=== PATIENT | male | born 1955 | race Caucasian/White ===

== ENCOUNTER 2016-07-23 06:09 | Day surgery (SDC) | payer BC ==
[~2016-07-23] VITALS: Ht 162.6 cm; Wt 68.0 kg
[~2016-07-23 06:09] MED LIST: CEFAZOLIN 2GM PREMIX 50 ML IV PRN; OMEP20TA63 PO
[2016-07-23] MEDS ORDERED: BUPIVACAINE-EPI 0.25%-1:200000 50 ML VIAL. ONE (06:22)
[2016-07-23] MEDS ORDERED: ACETAMINOPHEN INTRAVENOUS 100 ML IV ONE (06:45)
[2016-07-23] MEDS ORDERED: IV RINGERS,LACTATED 1000ML 1,000 ML IV SCH (07:00)
[2016-07-23] MEDS ORDERED: FENTANYL PF 100 MCG/2 ML VIAL. IV PRN ×2 (07:00)
[2016-07-23] MEDS ORDERED: MORPHINE SULFATE 2 MG/ML DISP.SYRIN. IV PRN (07:00)
[2016-07-23] MEDS ORDERED: LIDOCAINE 1% 1 ML SYRINGE. ID PRN (07:00)
[2016-07-23] MEDS ORDERED: ONDANSETRON PF 4 MG/2 ML VIAL. IV PRN (07:00)
[2016-07-23] MEDS ORDERED: HYDROMORPHONE 2 MG/ML VIAL. IV PRN (07:00)
[2016-07-23] MEDS ORDERED: PROCHLORPERAZINE 10 MG/2 ML VIAL. IV PRN (07:00)
[2016-07-23] MEDS ORDERED: DEXAMETHASONE SOD PHOS 20 MG/5 ML VIAL. ONE (07:51)
[2016-07-23] MEDS ORDERED: PROPOFOL 20 ML IV ONE ×2 (07:51→10:00)
[2016-07-23] MEDS ORDERED: ONDANSETRON PF 4 MG/2 ML VIAL. ONE (07:51)
[2016-07-23] MEDS ORDERED: LIDOCAINE 2% 100 MG/5 ML DISP.SYRIN. ONE (07:51)
[2016-07-23] MEDS ORDERED: ROCURONIUM 50 MG/5 ML VIAL. ONE (07:52)
[2016-07-23] MEDS ORDERED: MIDAZOLAM HCL 2 MG/2 ML VIAL. ONE (07:52)
[2016-07-23] MEDS ORDERED: FENTANYL PF 100 MCG/2 ML VIAL. ONE (07:52)
[2016-07-23] MEDS ORDERED: FAMOTIDINE 20 MG/2 ML VIAL ONE (07:52)
--- NOTE | 2016-07-23 08:10 | PDOC1 ---
History and Physical Date of Admission Date of Admission DATE: 07/23/16 TIME: 08:06 Identification/Chief Complaint Chief Complaint Right groin pain Source Source: Patient History of Present Illness History of Present Illness 61 yo male with complaints of right groin bulge with pain, worse with activity. Had bilateral inguinal hernia repair 7 years ago. Past Medical History GI: GERD Past Surgical History Past Surgical History: Hernia Repair (bilateral) Family History Family History: No Significant Social History Smoke: <1 pack per day ALCOHOL: occassional Drugs: None Current Medications Current Medications Current Medications Ondansetron HCl (Zofran) 4 mg PRN Q6HRS PRN IV Nausea; Start 07/23/16 at 07:00; Stop 07/24/16 at 06:59 Fentanyl Citrate (Fentanyl 2ml Vial) 25 mcg PRN Q5MIN PRN IV MILD PAIN; Start 07/23/16 at 07:00; Stop 07/24/16 at 06:59 Fentanyl Citrate (Fentanyl 2ml Vial) 50 mcg PRN Q5MIN PRN IV MODERATE PAIN; Start 07/23/16 at 07:00; Stop 07/24/16 at 06:59 Morphine Sulfate 1 mg 1 mg PRN Q10MIN PRN IV SEVERE PAIN; Start 07/23/16 at 07: 00; Stop 07/24/16 at 06:59 Lactated Ringer's (Iv Lactated Ringers) 1,000 ml @ 30 mls/hr Q24H IV Last administered on 07/23/16t 06:45; Start 07/23/16 at 07:00; Stop 07/23/16 at 18:59 Lidocaine HCl 2 ml 1X PRN PRN ID IV START; Start 07/23/16 at 07:00; Stop at 06:59 Hydromorphone HCl (Dilaudid) 0.5 mg PRN Q10MIN PRN IV SEVERE PAIN, Second choice; Start 07/23/16 at 07:00; Stop 07/24/16 at 06:59 Prochlorperazine Edisylate 5 mg 5 mg PACU PRN PRN IV NAUSEA; Start 07/23/16 at 07:00; Stop 07/24/16 at 06:59 Cefazolin Sodium/ Dextrose (Ancef 2gm Premix) 50 ml @ 100 mls/hr 1X PREOP PRN IV PRIOR TO PROCEDURE; Start 07/23/16 at 06:00; Stop 07/23/16 at 18:00 Bupivacaine HCl/ Epinephrine Bitart 50 ml 50 ml STK-MED ONCE .ROUTE ; Start 07/23 at 06:22; Stop 07/23/16 at 06:23; Status DC Acetaminophen (Ofirmev) 100 ml @ 400 mls/hr 1X ONCE IV ; Start 07/23/16 at 06: 45; Stop 07/23/16 at 06:59; Status DC Lidocaine HCl 100 mg 100 mg STK-MED ONCE .ROUTE ; Start 07/23/16 at 07:51; Stop 07/23/16 at 07:52; Status DC Propofol (Diprivan) 20 ml @ As Directed STK-MED ONCE IV ; Start 07/23/16 at 07:51 ; Stop 07/23/16 at 07:52; Status DC Dexamethasone Sodium Phosphate (Decadron) 20 mg STK-MED ONCE .ROUTE ; Start 07/23 at 07:51; Stop 07/23/16 at 07:52; Status DC Ondansetron HCl (Zofran) 4 mg STK-MED ONCE .ROUTE ; Start 07/23/16 at 07:51; Stop 07/23/16 at 07:52; Status DC Famotidine (Pepcid) 20 mg STK-MED ONCE .ROUTE ; Start 07/23/16 at 07:52; Stop 07/23/16 at 07:53; Status DC Fentanyl Citrate (Fentanyl 2ml Vial) 100 mcg STK-MED ONCE .ROUTE ; Start at 07:52; Stop 07/23/16 at 07:53; Status DC Rocuronium Dix (Zemuron) 50 mg STK-MED ONCE .ROUTE ; Start 07/23/16 at 07:52 ; Stop 07/23/16 at 07:53; Status DC Midazolam HCl (Versed) 2 mg STK-MED ONCE .ROUTE ; Start 07/23/16 at 07:52; Stop 07/23/16 at 07:53; Status DC Active Scripts Active Reported Prilosec Otc (Omeprazole Magnesium) 20 Mg Tablet.dr 20 Mg PO PRN PRN Allergies Allergies: Coded Allergies: No Known Drug Allergies (Unverified , 07/23/16) ROS Genitourinary: YES Pain (right groin) Physical Exam General: Alert, Oriented X3, Cooperative, No acute distress HEENT: Atraumatic Lungs: Clear to auscultation, Normal air movement Heart: RRR, no murmurs Abdomen: Normal bowel sounds, Soft, No tenderness Male Genitals Exam: hernia (right) Rectal Exam: not examined Extremities: No clubbing, No cyanosis, No edema Skin: No breakdown Neuro: Normal speech Psych/Mental Status: Mental status NL Vitals Vitals Vital Signs Date Time Temp Pulse Resp B/P Pulse Ox O2 Delivery O2 Flow Rate FiO2 07/23/16 06:30 97.9 86 20 163/92 97 Room Air 97.9 VTE Prophylaxis Ordered VTE Prophylaxis Devices: Yes VTE Pharmacological Prophylaxi: Contraindicated Assessment/Plan Assessment/Plan Recurrent RIH plan robotic assisted L/S hernia repair JULIAN FERRARA MD Jul 23, 2016 8:10 am
[2016-07-23] MEDS ORDERED: KETOROLAC 30 MG/ML SYRINGE FOR OR. INJ ONE (08:20)
[2016-07-23] MEDS ORDERED: NEOSTIGMINE METHYLSULFATE 5 MG/5 ML SYRINGE. ONE (08:29)
[2016-07-23] MEDS ORDERED: GLYCOPYRROLATE 1 MG/5 ML VIAL. ONE (08:29)
[2016-07-23] MEDS ORDERED: EPHEDRINE PF IN SALINE 50 MG/5 ML DISP.SYRIN. IV ONE (08:44)
[2016-07-23] MEDS ORDERED: SEVOFLURANE 61 TO 120 MINUTES. IH ONE (10:06)
--- NOTE | 2016-07-23 10:13 | PDOC ---
BRIEF OPERATIVE NOTE Date: Jul 23, 2016 Pre-Op Diagnosis Recurrent RIH Post-Op Diagnosis Same Procedure Performed Robotic assisted L/S RIH with mesh and removal of foreign body Surgeon [place] Anesthesia Type: General Blood Loss 10ml Specimens Obtained Foreign body old mesh Findings as above Complications None JULIAN FERRARA MD Jul 23, 2016 10:13
--- NOTE | 2016-07-23 10:15 | DISCH ---
DISCHARGE INSTRUCTIONS Condition on Discharge Condition on Discharge: Stable Activity After Discharge Activity Instructions for Disc: Avoid exertion Other activity instructions: No lifting >20lbs for 2 weeks Diet after Discharge Diet after Discharge: Regular Wound Incision Care Other wound/incision instructi: May shower in 24 hours Contacting the after DC Call your doctor for: If your condition worsens Follow-Up Follow up with: Dr Ferrara in 2 weeks JULIAN FERRARA MD Jul 23, 2016 10:15
[2016-07-23] MEDS ORDERED: HYDR-971 PO (10:32)
[2016-07-23 11:07] VITALS: BP 128/77
[2016-07-23] MEDS ORDERED: HYDROCODONE/APAP 5/325MG TABLET. PO PRN (11:15)
--- NOTE | 2016-07-24 02:17 | OP ---
DATE OF SURGERY: 07/23/2016 PREOPERATIVE DIAGNOSIS: Recurrent right inguinal hernia. POSTOPERATIVE DIAGNOSIS: Recurrent right inguinal hernia. PROCEDURE: Robotic-assisted laparoscopic right inguinal hernia repair with mesh and removal of foreign body. SURGEON: Oliver Ferrara M.D. INDICATIONS: The patient is a 61-year-old gentleman who had a bilateral inguinal hernia repairs about 7 years ago comes in with complaints of a painful bulge in his right groin. Procedure of robotic-assisted laparoscopic right inguinal hernia repair was explained to the patient in detail. Risks, benefits were also discussed including bleeding, infection, injury to intra-abdominal contents, possibly necessitating further open operations. Alternatives of this procedure were also discussed with the patient who seemed to understand and gave verbal and written consent to have the procedure performed. DESCRIPTION OF PROCEDURE: The patient was taken to the operating room and placed in the supine position, general anesthesia was initiated. Once the patient was asleep and intubated, he was placed in low lithotomy positioning. His abdomen was prepped and draped in usual sterile fashion using ChloraPrep. An area just above his umbilicus, injected 0.25% Marcaine with epinephrine. Incision made with an 11 blade scalpel and a Veress needle was placed within the abdomen. Pneumoperitoneum was achieved. Once this was complete, an 8.5 mm da Brii port was placed. Camera was placed within the abdomen. Abdomen was inspected. He did have a fairly large right inguinal hernia with incarcerated omentum. At this point, two more 8.5 mm da Brii ports were placed under direct visualization, one in the right mid abdomen and one in the left mid abdomen. At this point, the da Brii robot was brought in between the patient's legs and docked to the port site grasper and EndoShears scissors were placed. At this point, the surgeon went to the robotic console. The omentum incarcerated within the hernia defect was reduced. It was also noted there was a large mesh plug within the preperitoneal space. The peritoneum superiorly was incised. This was brought down with blunt and sharp dissection down to the hernia defect as well as the mesh plug. The mesh plug was removed from its adherent tissues using sharp dissection and electrocautery. Once this was completely removed, the hernia sac was removed from the hernia defect. At this point, ProGrip mesh was then placed within the abdomen. This was placed over the hernia defect on the floor of the pelvic floor and positioned using the ProGrip mesh. The peritoneum was then closed over the ProGrip mesh using a running V-Loc suture. At this point, surgeon returned to the operative field. The da Brii robot was undocked and removed. An 11 mm port was switched out for the middle 8.5 mm port. This allowed for EndoCatch bag to be placed within the abdomen and the mesh plug was placed in an EndoCatch bag and removed from the abdomen. The pneumoperitoneum was reduced. All ports were removed. Fascial defect at the umbilicus closed with [id number] Vicryl suture and the skin was reapproximated at all port sites with 4-0 subcuticular Monocryl. Mastisol, Steri-Strips and Band-Aids were applied as dressings. The patient was awakened, extubated in the operating room, taken to recovery in stable condition. All sponge, instrument counts listed as correct. Estimated blood loss 10 mL. OLIVER FERRARA MD DR: GARRETT/partha JOB#: [id number] / [id number] ESCOBAR Sinha MD
--- NOTE | 2016-07-24 15:00 | PATHOLOGY ---
PATHOLOGY REPORT * * * * * * * * FINAL DIAGNOSIS: Segment of mesh, clinically from right inguinal region (Gross only). (JPM:mgmax; d/t: 07/24/16) REPORT ELECTRONICALLY SIGNED BY: Antonio Longoria M.D. DATE/TIME: 07/24/2016 14:59 * * * * * * * * GROSS PATHOLOGY: The specimen is received in formalin, labeled "Adria Leslie and retained mesh." Received is a 3.7 x 3.2 x 3.0 cm blood-tinged, winters, and pyramidal portion of surgical mesh with a minimal amount of attached soft tissue. A digital image is taken. This is a gross examination only. No sections are submitted. (TTL; 07/24/2016) INITIAL CPT CODE(S): A; 73352 Professional services performed [place] [facility] [place] [address] Technical services performed by [facility] at [address] [place] [address], [address], [place] [address]. SPECIMEN(S) RECEIVED: A.Retained mesh CLINICAL HISTORY: Right inguinal hernia recurring PATIENT: ADRIA LESLIE /AGE: 1104/18/1955 (Age: 61) PATIENT #: [id number] ALT CASE #: SPECIMEN COLLECTION DATE: 07/23/2016 SPECIMEN RECEIVED DATE: 07/23/2016 [facility] - [address] [place] [address] - PHONE: [phone] * * * END OF REPORT * * *
== END 2016-07-23 11:54 | disposition home or self-care (01) ==
LOC: SURG 06:09
PROVIDERS: ATTEND Surgery
DX: K40.91 Unilateral inguinal hernia, without obstruction or gangrene, recurrent (principal); K21.9 Gastro-esophageal reflux disease without esophagitis; M19.90 Unspecified osteoarthritis, unspecified site; M10.9 Gout, unspecified; F10.99 Alcohol use, unspecified with unspecified alcohol-induced disorder; F17.200 Nicotine dependence, unspecified, uncomplicated
CPT/HCPCS: 49650; C1781; J0131; J0690; J1100; J1885; J2250; J2405; J2704; J2710; J3010; J3490; J7120; S0028; S2900; 88300